=== PATIENT | female | born 2000 | race Caucasian/White ===

== ENCOUNTER 2021-08-18 11:01 | Emergency (ER) | payer MEDICAID, OTHER ==
[~2021-08-18] VITALS: Ht 165.1 cm; Wt 56.7 kg
[2021-08-18] MEDS ORDERED: METH-732 PO (11:38)
[2021-08-18] MEDS ORDERED: IBUP-1780 PO (11:38)
--- NOTE | 2021-08-18 11:39 | ED Lower Extremity ---
General Chief Complaint: Lower Extremity Stated Complaint: FALL - R HIP / BACK PAIN Source: patient Exam Limitations: no limitations History of Present Illness Date Seen by Provider: August 18, 2021 Time Seen by Provider: 11:36 Initial Comments To ER with a fall 3 to 4 days ago landing on her right hip. She has some bruising and pain with walking. She took 1 Aleve on Wednesday. Onset: last week Severity: moderate Pain/Injury Location: right hip Method of Injury: fell Modifying Factors: Worse With Movement Allergies and Home Medications Allergies Coded Allergies: No Known Allergies (Verified Allergy, Unknown, 08/18/21) Patient Home Medication List Home Medication List Reviewed: Yes Ibuprofen (Ibuprofen) 800 Mg Tablet, 800 MG PO Q8H PRN for PAIN Prescribed by: HOA GRAJEDA on 08/18/21 1138 Methocarbamol (Methocarbamol) 750 Mg Tablet, 750 MG PO Q6-8HR Prescribed by: HOA GRAJEDA on 08/18/21 1138 Review of Systems Constitutional: see HPI EENTM: see HPI Respiratory: no symptoms reported Cardiovascular: no symptoms reported Genitourinary: no symptoms reported Musculoskeletal: see HPI Skin: no symptoms reported Psychiatric/Neurological: No Symptoms Reported Physical Exam Vital Signs Capillary Refill : Height, Weight, BMI Height: '" Weight: lbs. oz. kg; BMI Method: General Appearance: WD/WN, no apparent distress HEENT: PERRL/EOMI, normal ENT inspection Respiratory: no respiratory distress, no accessory muscle use Hips: bilateral hip non-tender; right hip normal inspection, right hip normal range of motion, right hip other (There quarter size bruising over the anterior superior iliac spine as well as the right medial proximal thigh. Exam was done with Beryl patient client care manager at the bedside.) Legs: right leg pain, right leg soft tissue tenderness Knees: bilateral knee non-tender, bilateral knee normal inspection, bilateral knee normal range of motion Ankles: bilateral ankle non-tender, bilateral ankle normal inspection, bilateral ankle normal range of motion Feet: bilateral foot non-tender, bilateral foot normal inspection, bilateral foot normal range of motion Neurologic/Psychiatric: alert, normal mood/affect, oriented x 3 Skin: normal color, warm/dry Departure Impression Primary Impression: Hip sprain Additional Impression: Contusion Disposition: 01 HOME, SELF-CARE Condition: Stable Departure-Patient Inst. Decision time for Depature: 11:38 Referrals: NO,LOCAL PHYSICIAN (PCP/Family) Primary Care Physician Patient Instructions: Leg Muscle Strain ED Scripts Methocarbamol (Methocarbamol) 750 Mg Tablet 750 MG PO Q6-8HR for Back Pain, #14 TAB Prov: HOA GRAJEDA APRN 08/18/21 Ibuprofen (Ibuprofen) 800 Mg Tablet 800 MG PO Q8H PRN for PAIN, #30 TAB 0 Refills Prov: HOA GRAJEDA APRN 08/18/21 Work/School Note: Work Release Form Date Seen in the Emergency Department: August 18, 2021 Return to Work: August 19, 2021 HOA GRAJEDA APRN August 18, 2021 11:39
[2021-08-18 11:46] VITALS: BP 122/71
== END 2021-08-18 11:46 | disposition home or self-care (01) ==
LOC: ER 11:03
DX: S73.101A Unspecified sprain of right hip, initial encounter (principal); S30.0XXA Contusion of lower back and pelvis, initial encounter; W19.XXXA Unspecified fall, initial encounter
CPT/HCPCS: 99281

== ENCOUNTER → 2023-03-05 | Outpatient (CLI) | payer MEDICAID ==
[~2023-03-05] MED LIST: IBUP-1780 PO; METH-732 PO
--- NOTE | 2023-03-05 10:47 | Diagnostic Imaging Report ---
INDICATION: patient, survey. TECHNIQUE: Multiple real-time grayscale images were obtained over the gravid uterus. COMPARISON: None FINDINGS: There is a single live intrauterine fetus measuring 20 weeks 5 days by composite measurements. Fetus is in breech presentation. Amniotic fluid index appears normal at 16 cm. Placenta is posterior with no evidence of previa. heart rate is 140 bpm. Cervical length is 4.2 cm. The distance in the placental tip to the internal os was 6.2 cm. survey demonstrates normal-appearing three-vessel cord and cord insertion. Views of the spine were normal. Four-chamber heart view normal. Intracranial ventricles appear normal. Views of the stomach were normal. The urinary bladder appear normal. The kidneys bilaterally are present, with mild prominence of the renal pelvis on both sides measuring about 4 mm. Maternal adnexa showed no free fluid. Biometrical measurements are as follows: Biparietal 4.80 cm, age 20 weeks 4 days. Head circumference 18.03 cm, age 20 weeks 4 days. Abdominal circumference 15.82 cm, age 21 weeks 0 days. Femur length 3.32 cm, age 20 weeks 3 days. Sonographic estimate age: 20 weeks 5 days. Sonographic estimated date of delivery: 07/18/2023. Estimated Weight: 369 gm (+/- 54 gm). LMP percentile: 50%. heart rate: 140 beats per minute. number: 1 of 1. IMPRESSION: Single live intrauterine fetus measuring 20 weeks 5 days by composite measurements. There is mild prominence of the renal pelvis, consider followup as clinically warranted. There is no other significant abnormality. Dictated by: Dictated on workstation # [id number]
== END ==
LOC: RAD 08:42
PROVIDERS: ATTEND Obstetrics & Gynecology
DX: Z36.89 Encounter for other specified antenatal screening (principal); Z3A.20 20 weeks gestation of pregnancy
CPT/HCPCS: 76805